=== PATIENT | female | born 1990 | race Caucasian/White ===

== ENCOUNTER 2019-09-07 09:32 | Emergency (ER) | payer OTHER ==
[~2019-09-07] VITALS: Ht 170.2 cm; Wt 73.9 kg
[2019-09-07] MEDS ORDERED: CLARITIN5 MG/5 ML (09:42)
== END 2019-09-07 10:36 | disposition home or self-care (01) ==
LOC: ER 09:32
DX: H66.92 Otitis media, unspecified, left ear (principal)